=== PATIENT | female | born 1975 | race Hispanic/Latino ===

== ENCOUNTER → 2018-04-16 | Outpatient (CLI) | payer OTHER ==
--- NOTE | 2018-04-16 14:49 | Diagnostic Imaging Report ---
History: Heavy lifting. Low back pain and bilateral hip pain Comparison studies: None Technique: Sagittal, coronal and axial T2 , sagittal T1 and IR, axial spin density oblique. Intravenous contrast: None Findings: Number of lumbar vertebral bodies:5 Alignment: Normal lordosis.No scoliosis. Soft tissues: No T2 hyperintense inflammatory changes. Paraspinal muscles: No signal abnormalities. No atrophy. Lower thoracic cord:Normal in signal and morphology. The tip of the conus is at L1. Cauda equina: No masses. No arachnoiditis. Vertebrae: Normal in height and signal intensity. No compression fractures, infection or neoplasm. Degenerative changes: L1-L2: No abnormalities. L2-L3: No abnormalities. L3-L4: No abnormalities. L4-L5: No abnormalities. L5-S1: Disc degeneration with loss of T2 signal. Diffuse disc bulge with superimposed small central disc protrusion results in no significant canal stenosis or foraminal narrowing. Additional findings: Partially visualized gallstones without evidence of surrounding inflammation IMPRESSION: Disc degeneration with small central disc protrusion at L5-S1 without significant canal stenosis or foraminal narrowing. Cholelithiasis without evidence of cholecystitis Signed by: DR Toan Graf M.D. on 04/16/2018 2:46 PM
--- NOTE | 2018-04-16 16:38 | Diagnostic Imaging Report ---
TECHNIQUE: Magnetic resonance imaging of the RIGHT HIP was performed WITHOUT injected contrast. HISTORY: Pain COMPARISON: None available. FINDINGS: Bone: The bone marrow signal is heterogeneous, compatible with red marrow conversion, no specific evidence of a focal bone marrow replacing abnormality. No osteonecrosis or acute fracture. Femoroacetabular Joint: Acetabular labrum: Mild contour irregularity and attenuation of the anterosuperior labrum. Articular Cartilage: No focal defect. Muscle and tendons: The visualized tendons appear intact. Soft tissues: Otherwise, unremarkable. Other: Mild to moderate degenerative changes of the pubic symphysis. IMPRESSION: 1. 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 2. Mild degenerative tearing/fraying of the anterosuperior labrum. Signed by: Dr. Ernesto Waller D.O., M.M.M. on 04/16/2018 4:35 PM
--- NOTE | 2018-04-16 16:42 | Diagnostic Imaging Report ---
TECHNIQUE: Magnetic resonance imaging of the LEFT HIP was performed WITHOUT injected contrast. HISTORY: Pain COMPARISON: None available. FINDINGS: Bone: The bone marrow signal is heterogeneous, compatible with red marrow conversion, no specific evidence of a focal bone marrow replacing abnormality. No osteonecrosis or acute fracture. Femoroacetabular Joint: Acetabular labrum: Mild contour irregularity and attenuation of the anterosuperior labrum. Articular Cartilage: No focal defect. Muscle and tendons: The visualized tendons appear intact. Soft tissues: Otherwise, unremarkable. Other: Mild to moderate degenerative changes of the pubic symphysis. IMPRESSION: 1. 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 2. Mild degenerative tearing/fraying of the anterosuperior labrum. Signed by: Dr. Ernesto Waller D.O., M.M.M. on 04/16/2018 4:38 PM
== END ==
LOC: MRI 13:24
PROVIDERS: ATTEND Specialist
DX: M47.896 Other spondylosis, lumbar region (principal); M16.0 Bilateral primary osteoarthritis of hip
CPT/HCPCS: 72148